=== PATIENT | female | born 2000 | race Caucasian/White ===

== ENCOUNTER 2020-06-24 14:53 | Inpatient (IN) | payer MEDICAID ==
[~2020-06-24] VITALS: Ht 165.1 cm; Wt 68.5 kg
[2020-06-24] MEDS ORDERED: SODIUM CHLORIDE 0.9% 1,000ML IVBOLUS ONE ×2 (15:30→17:30)
[2020-06-24] MEDS ORDERED: ONDANSETRON 2MG/ML, 2ML IVPush ONE ×2 (15:30→18:30)
[2020-06-24] MEDS ORDERED: SODIUM CHLORIDE FLUSH 10ML SYR IVF ONE (15:30)
[2020-06-24] MEDS ORDERED: FAMOTIDINE 20 MG/2 ML IVPush ONE (15:30)
[2020-06-24] MEDS ORDERED: FAMOTIDINE 20 MG/2 ML ONE (15:36)
[2020-06-24] MEDS ORDERED: ONDANSETRON 2MG/ML, 2ML ONE ×2 (15:36→18:06)
[2020-06-24 15:37] LABS: BASOPHILS % (AUTO) 0 % (0-1); EOSINOPHILS % (AUTO) 0 % (1-7); LYMPHOCYTES % (AUTO) 6 % (22-44); MEAN CORPUSCULAR HGB CONC 33.3 g/dL (32.4-35.8); MEAN PLATELET VOLUME 9.5 fL (7.4-10.4); MONOCYTES % (AUTO) 1 % (2-9); NEUTROPHILS % (AUTO) 93 % (42-75); PLATELET COUNT 351 x10^3/uL (130-400); RED BLOOD COUNT 5.19 x10^6/uL (3.82-5.3); RED CELL DISTRIBUTION WIDTH 17.3 % (9.6-15.2)
[2020-06-24 15:46] LABS: ALBUMIN 3.8 g/dL (3.4-5.0); ANION GAP 14 mmol/L (5-15); CALCIUM 9.9 mg/dL (8.5-10.1); CHLORIDE 110 mmol/L (98-107); CREATININE 0.62 mg/dL (0.55-1.02)
--- NOTE | 2020-06-24 16:12 | NUR ---
IV STARTED. ORDERED FLUIDS AND MEDS GIVEN. PT ON VITALS MONITORS. MOTHER AT BEDSIDE. PT IN US AT THIS TIME. PT GIVEN URINE CUP FOR URINE COLLECTION.
[2020-06-24 16:18] LABS: MD SCAN
--- NOTE | 2020-06-24 17:10 | NUR ---
URINE SAMPLE SENT TO LAB.
[2020-06-24 17:12] LABS: MICROSCOPIC NOT IND
--- NOTE | 2020-06-24 18:09 | NUR ---
PT CONTINUES TO BE NAUSEATED. PT MEDICATED PER EMAR FOR NAUSEA. UNABLE TO DO PO CHALLANGE AT THIS TIME.
[2020-06-24] MEDS ORDERED: SODIUM CHLORIDE 0.9% 1,000 ML IV ONE (18:23)
[2020-06-24] MEDS ORDERED: SODIUM CHLORIDE FLUSH 10ML SYR IVF PRN (18:30)
[2020-06-24] MEDS ORDERED: ONDANSETRON 2MG/ML, 2ML IVPush PRN ×2 (18:30→19:00)
[2020-06-24] MEDS ORDERED: LACTATED RINGERS 1,000 ML IV SCH (19:00)
[2020-06-24] MEDS ORDERED: DOCUSATE 100 MG CAPSULE PO PRN (19:00)
--- NOTE | 2020-06-24 19:29 | NUR ---
Report given to ALYSHA Snider. Please let pt take warm shower once on floor per PA.
[2020-06-24] MEDS ORDERED: ACETAMINOPHEN 650 MG SUPP PR PRN (19:30)
[2020-06-24] MEDS ORDERED: THIAMINE 100 MG in SODIUM CHLORIDE 0.9% 50 ML IV SCH (19:30)
[2020-06-24] MEDS ORDERED: METOCLOPRAMIDE 5 MG/ML, 2ML IVPush PRN (20:00)
[2020-06-24 20:26] VITALS: BP 100/53
[2020-06-25 00:21] VITALS: BP 95/50
[2020-06-25 05:11] LABS: BASOPHILS % (AUTO) 0 % (0-1); EOSINOPHILS % (AUTO) 0 % (1-7); LYMPHOCYTES % (AUTO) 16 % (22-44); MEAN CORPUSCULAR HEMOGLOBIN 27.7 pg (27.0-34.8); MEAN CORPUSCULAR HGB CONC 32.5 g/dL (32.4-35.8); MEAN PLATELET VOLUME 10.1 fL (7.4-10.4); MONOCYTES % (AUTO) 6 % (2-9); NEUTROPHILS % (AUTO) 78 % (42-75); PLATELET COUNT 280 x10^3/uL (130-400); RED BLOOD COUNT 4.11 x10^6/uL (3.82-5.3)
[2020-06-25 05:13] LABS: ANION GAP 8 mmol/L (5-15); CALCIUM 8.1 mg/dL (8.5-10.1); CHLORIDE 112 mmol/L (98-107)
[2020-06-25] MEDS ORDERED: POTASSIUM CHLORIDE 40 MEQ in SODIUM CHLORIDE 0.9% 500 ML IV ONE (06:30)
[2020-06-25 09:04] LABS: MD SCAN
[2020-06-25] MEDS ORDERED: ONDANSETRON ODT 4 MG PO PRN (09:30)
[2020-06-25 12:55] VITALS: BP 93/60
[2020-06-25] MEDS ORDERED: ONDA4TAB13 PO (13:13)
[2020-06-25] MEDS ORDERED: POTASSIUM CHLORIDE 20 MEQ in LACTATED RINGERS 1,000 ML IV SCH (19:00)
[2020-06-25] MEDS ORDERED: FAMOTIDINE 20 MG/2 ML IVPush SCH (21:00)
== END 2020-06-25 15:00 | disposition home or self-care (01) | DRG 566 ==
LOC: ED 15:58 → EDIP 18:23 → 3N 19:33 → DCLOUNGE 06-25 14:56
PROVIDERS: ADMIT Family Medicine; ATTEND Hospitalist
DX: O21.1 Hyperemesis gravidarum with metabolic disturbance (principal); O99.111 Other diseases of the blood and blood-forming organs and certain disorders involving the immune mechanism complicating pregnancy, first trimester; Z3A.11 11 weeks gestation of pregnancy
CPT/HCPCS: 36415; 71045; 76801; 80048; 81003; 82040; 84702; 85025; 87040; G0378; J2405; J3411; J3480; J3490; J7030; J7040

== ENCOUNTER 2021-05-15 03:00 | Emergency (ER) | payer MEDICAID ==
[~2021-05-15] VITALS: Ht 162.6 cm; Wt 65.0 kg
[~2021-05-15 03:00] MED LIST: ONDA4TAB13 PO
[2021-05-15 03:03] VITALS: BP 105/47
--- NOTE | 2021-05-15 03:14 | NUR ---
PATIENT REPORTS SHE WAS CLEANING UP BROKEN GLASS WHEN SOME OF THE GLASS FELL FROM HER HAND AND LACERATED HER FINGERS ON HER LEFT HAND. REPORTS PAIN 8/10.
[2021-05-15] MEDS ORDERED: LIDOCAINE-MPF 1%, 5ML ONE (03:25)
[2021-05-15] MEDS ORDERED: LIDOCAINE-MPF 1%, 5ML INFIL ONE (03:30)
[2021-05-15] MEDS ORDERED: BACITRACIN ZINC OINT 500U/GM, 0.9 GM ONE (04:16)
--- NOTE | 2021-05-15 04:28 | NUR ---
Patient given discharge instructions and they have confirmed that they understand the instructions. Patient ambulatory with steady gait. NAD, all questions answered appropriately, denies additional needs at this time. No personal belongings left in room after discharge.
== END 2021-05-15 04:30 | disposition home or self-care (01) ==
LOC: ED 04:00
DX: S61.213A Laceration without foreign body of left middle finger without damage to nail, initial encounter (principal); S61.215A Laceration without foreign body of left ring finger without damage to nail, initial encounter; W26.9XXA Contact with unspecified sharp object(s), initial encounter; Y93.89 Activity, other specified; Y92.009 Unspecified place in unspecified non-institutional (private) residence as the place of occurrence of the external cause; Y99.8 Other external cause status
CPT/HCPCS: 12002; 99283